=== PATIENT | female | born 2000 | race Caucasian/White ===

== ENCOUNTER → 2024-10-10 14:36 | Outpatient (REF) | payer BC, SELFPAY | LOC: WDC 14:36 | PROVIDERS: ATTENDING PHYSICIAN Student in an Organized Health Care Education/Training Program; FAMILY PHYSICIAN Family Medicine | DX: N63.20 Unspecified lump in the left breast, unspecified quadrant (principal); N63.22 Unspecified lump in the left breast, upper inner quadrant | CPT/HCPCS: 76642 ==

== ENCOUNTER → 2024-10-22 07:55 | Outpatient (REF) | payer BC, SELFPAY ==
--- NOTE | 2024-10-22 13:19 | OID.BR.INTR ---
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
- -
Date of Contact: 10/22/24
Met with patient. Will follow up as needed per protocol.
== END ==
LOC: WDC 07:55
PROVIDERS: ATTENDING PHYSICIAN Student in an Organized Health Care Education/Training Program; FAMILY PHYSICIAN Family Medicine
DX: N63.22 Unspecified lump in the left breast, upper inner quadrant (principal)
CPT/HCPCS: 19083; 88305; A4648